=== PATIENT | male | born 1975 | race American Indian/Alaskan Native ===

== ENCOUNTER 2018-01-28 14:00 | Emergency (ER) | payer OTHER ==
[~2018-01-28] VITALS: Ht 170.2 cm; Wt 63.5 kg
[~2018-01-28 14:00] MED LIST: ABAT250V; Advil200 M1 PO; CENTRUM COMPLE1 EACH PO; CEPH500 PO; CHLO25 PO; Crutch1 EACH MISC; FOLI1 PO; MELA3 PO; MIRT30ST PO; NAPR500 PO; OMEP10ER; ONDA4ODT MM; OXCA300 PO; Omeprazole20 M1 PO; POTCHL20ER PO; PRAZ1 PO; PROM25 PO; Pepcid40 MG PO; Percocet 5-3251 EACH PO; QUET25 PO; THIA100 PO; TOPI25; Zofran Odt4 MG SL; Zofran4 MG PO
[2018-01-28 15:13] LABS: Anion Gap 9 mmol/L (6-16); Blood Urea Nitrogen 6 mg/dL (8-24); Bun/Creatinine Ratio 9.7 (12.0-20.0); CO2, Blood 26 mmol/L (21-32); Calcium, Blood 8.2 mg/dL (8.5-10.1); Chloride, Blood 91 mmol/L (98-108); Creatinine, Blood 0.62 mg/dL (0.60-1.20); Glomerular Filtration Rate >60 (60-); Glucose, Blood 88 mg/dL (70-99); Potassium, Blood 4.1 mmol/L (3.5-5.5); Sodium, Blood 126 mmol/L (136-145)
[2018-08-26] MEDS ORDERED: Phenergan25 M1 PO (17:26)
[2018-09-02] MEDS ORDERED: Norco 5-325 Ta1 EACH PO (15:56)
== END 2018-01-28 17:15 | disposition home or self-care (01) ==
LOC: ER 14:00
PROVIDERS: Emergency Medicine
DX: G40.909 Epilepsy, unspecified, not intractable, without status epilepticus (principal); F10.20 Alcohol dependence, uncomplicated; R11.2 Nausea with vomiting, unspecified; Z79.899 Other long term (current) drug therapy; I10 Essential (primary) hypertension; F17.210 Nicotine dependence, cigarettes, uncomplicated
CPT/HCPCS: 70450; 80048; 93005; 93010; 96361; 96374; 99284; J2405; J7030

== ENCOUNTER 2018-10-29 22:34 | Emergency (ER) | payer OTHER ==
[~2018-10-29] VITALS: Ht 162.6 cm; Wt 73.9 kg
[~2018-10-29 22:34] MED LIST changes: +Norco 5-325 Ta1 EACH PO; +Phenergan25 M1 PO
[2018-10-29] MEDS ORDERED: HYDPAM50 PO (23:27)
[2018-10-29] MEDS ORDERED: OLAN5 PO (23:28)
== END 2018-10-30 01:36 | disposition home or self-care (01) ==
LOC: ER 22:34
DX: S01.21XA Laceration without foreign body of nose, initial encounter (principal); S01.511A Laceration without foreign body of lip, initial encounter; F10.129 Alcohol abuse with intoxication, unspecified; Z23 Encounter for immunization; I10 Essential (primary) hypertension; F17.210 Nicotine dependence, cigarettes, uncomplicated; Z79.899 Other long term (current) drug therapy; W19.XXXA Unspecified fall, initial encounter
CPT/HCPCS: 12011; 70450; 70486; 72125; 90471; 90714; 99283-25

== ENCOUNTER 2018-11-10 11:32 | Emergency (ER) | payer OTHER ==
[~2018-11-10] VITALS: Ht 165.1 cm; Wt 72.6 kg
[~2018-11-10 11:32] MED LIST changes: +HYDPAM50 PO; +OLAN5 PO
== END 2018-11-10 12:47 | disposition home or self-care (01) ==
LOC: ER 11:32
DX: S01.511D Laceration without foreign body of lip, subsequent encounter (principal); S01.21XD Laceration without foreign body of nose, subsequent encounter; I10 Essential (primary) hypertension; K21.9 Gastro-esophageal reflux disease without esophagitis; R56.9 Unspecified convulsions; F17.210 Nicotine dependence, cigarettes, uncomplicated; Z79.899 Other long term (current) drug therapy; W19.XXXD Unspecified fall, subsequent encounter

== ENCOUNTER 2019-01-19 16:50 | Emergency (ER) | payer OTHER ==
[~2019-01-19] VITALS: Ht 165.1 cm; Wt 72.6 kg
[2019-01-19 17:59] LABS: BASOPHILS ABSOLUTE AUTO 0.04 K/mm3 (0.00-0.23); BASOPHILS PERCENT AUTO 1 % (0-2); EOSINOPHILS ABSOLUTE AUTO 0.33 K/mm3 (0.00-0.68); EOSINOPHILS PERCENT AUTO 4 % (0-6); Hematocrit 37.8 % (37.0-53.0); Hemoglobin 12.8 g/dL (13.5-17.5); IMMATURE GRAN ABSOLUTE AUTO 0.03 K/mm3 (0.00-0.10); IMMATURE GRAN PERCENT AUTO 0 % (0-1); LYMPHOCYTES PERCENT AUTO 11 % (21-46); MONOCYTES ABSOLUTE AUTO 0.68 K/mm3 (0.16-1.47); MONOCYTES PERCENT AUTO 9 % (4-13); Mean Corpuscular HGB 31.5 pg (26.0-34.0); Mean Corpuscular HGB Conc 33.9 g/dL (31.5-36.5); Mean Corpuscular Volume 93 fL (80-100); Mean Platelet Volume 7.9 fL (9.1-12.4); NEUTROPHILS ABSOLUTE AUTO 5.57 K/mm3 (1.96-9.15); NEUTROPHILS PERCENT AUTO 75 % (41-73); Platelet Count 224 K/mm3 (150-400); RDW Coefficient Variation 13.6 % (11.7-14.2); RDW Standard Deviation 46.1 fL (35.1-46.3); Red Blood Cell Count 4.06 M/mm3 (4.30-5.90); White Blood Cell Count 7.45 K/mm3 (4.00-11.30)
[2019-01-19 18:17] LABS: Alanine Aminotransfer (ALT/SGP 48 U/L (12-78); Albumin, Blood 3.8 g/dL (3.4-5.0); Albumin/Globulin Ratio 0.9 (0.8-1.8); Alk Phos 157 U/L (50-136); Anion Gap 8 mmol/L (6-16); Aspartate Aminotrans (AST/SGOT 54 U/L (12-37); Bilirubin, Total 0.5 mg/dL (0.1-1.0); Blood Urea Nitrogen 5 mg/dL (8-24); Bun/Creatinine Ratio 8.2 (12.0-20.0); CO2, Blood 28 mmol/L (21-32); Calcium, Blood 9.1 mg/dL (8.5-10.1); Chloride, Blood 94 mmol/L (98-108); Creatinine, Blood 0.61 mg/dL (0.60-1.20); Globulin, Blood 4.3 g/dL (2.2-4.0); Glomerular Filtration Rate >60 (60-); Glucose, Blood 78 mg/dL (70-99); Potassium, Blood 4.7 mmol/L (3.5-5.5); Sodium, Blood 130 mmol/L (136-145); Total Protein, Blood 8.1 g/dL (6.4-8.2)
[2019-01-19 18:23] LABS: International Normalized Ratio 0.93; Prothrombin Time Results 9.5 Sec (9.7-11.5)
[2019-01-19] MEDS ORDERED: PROM25 PO (23:47)
== END 2019-01-20 00:31 | disposition home or self-care (01) ==
LOC: ER 16:50
PROVIDERS: Physician Assistant
DX: L40.9 Psoriasis, unspecified (principal); F10.20 Alcohol dependence, uncomplicated; R11.0 Nausea; R60.0 Localized edema; Z79.899 Other long term (current) drug therapy; I10 Essential (primary) hypertension; F17.200 Nicotine dependence, unspecified, uncomplicated
CPT/HCPCS: 36415; 70450; 80053; 82140; 83690; 83880; 84484; 85025; 85610; 85730; 96374; 96375; 99284-25; J1940; J2550

== ENCOUNTER 2020-06-06 17:22 | Emergency (ER) | payer OTHER ==
[~2020-06-06] VITALS: Ht 165.1 cm; Wt 59.0 kg
[~2020-06-06 17:22] MED LIST changes: +B-1100 M1 PO; -CENTRUM COMPLE1 EACH PO; +GABA300 PO; +MULTI VITAMIN1 EACH PO; +OMEP20ER PO; -Omeprazole20 M1 PO; +Oxcarbazepine600 MG PO; +Vistaril50 MG PO; +ZYPREXA15 MG PO
[2020-06-06 18:10] LABS: BASOPHILS ABSOLUTE AUTO 0.03 K/mm3 (0.00-0.23); BASOPHILS PERCENT AUTO 0 % (0-2); EOSINOPHILS ABSOLUTE AUTO 0.09 K/mm3 (0.00-0.68); EOSINOPHILS PERCENT AUTO 1 % (0-6); Hematocrit 34.2 % (37.0-53.0); IMMATURE GRAN ABSOLUTE AUTO 0.01 K/mm3 (0.00-0.10); IMMATURE GRAN PERCENT AUTO 0 % (0-1); LYMPHOCYTES ABSOLUTE AUTO 0.87 K/mm3 (0.84-5.20); LYMPHOCYTES PERCENT AUTO 12 % (21-46); MONOCYTES ABSOLUTE AUTO 0.81 K/mm3 (0.16-1.47); MONOCYTES PERCENT AUTO 11 % (4-13); Mean Corpuscular HGB 30.9 pg (26.0-34.0); Mean Corpuscular HGB Conc 35.1 g/dL (31.5-36.5); Mean Corpuscular Volume 88 fL (80-100); NEUTROPHILS ABSOLUTE AUTO 5.49 K/mm3 (1.96-9.15); NEUTROPHILS PERCENT AUTO 75 % (41-73); Platelet Count 247 K/mm3 (150-400); RDW Coefficient Variation 14.2 % (11.7-14.2); RDW Standard Deviation 45.5 fL (35.1-46.3); Red Blood Cell Count 3.88 M/mm3 (4.30-5.90)
[2020-06-06 18:31] LABS: Alanine Aminotransfer (ALT/SGP 21 U/L (12-78); Albumin, Blood 2.7 g/dL (3.4-5.0); Albumin/Globulin Ratio 0.5 (0.8-1.8); Alk Phos 191 U/L (50-136); Anion Gap 11 mmol/L (6-16); Aspartate Aminotrans (AST/SGOT 30 U/L (12-37); Blood Urea Nitrogen 1 mg/dL (8-24); Bun/Creatinine Ratio 1.8 (12.0-20.0); CO2, Blood 27 mmol/L (21-32); Calcium, Blood 8.1 mg/dL (8.5-10.1); Chloride, Blood 83 mmol/L (98-108); Creatinine, Blood 0.57 mg/dL (0.60-1.20); Ethanol (Alcohol), Blood, Med <3 mg/dL; Glomerular Filtration Rate >60 (60-); Glucose, Blood 107 mg/dL (70-99); Potassium, Blood 3.3 mmol/L (3.5-5.5); Salicylate <1.7 mg/dL (2.8-20.0); Sodium, Blood 121 mmol/L (136-145); Total Protein, Blood 7.7 g/dL (6.4-8.2)
[2020-06-06 18:33] LABS: Magnesium, Blood 1.9 mg/dL (1.6-2.4); Phosphorus, Blood 3.2 mg/dL (2.5-4.9)
[2020-06-06 18:33] LABS: Source, Urine Clean Catch
[2020-06-06 18:34] LABS: Acetaminophen, Random <2.0 ug/mL (10.0-30.0)
[2020-06-06 18:36] LABS: Appearance, Urine Clear (Clear); Bilirubin, Urine Neg (Neg); Blood, Urine Neg (Neg); Color, Urine Yellow (P-Yellow); Glucose Qualitative, Urine Neg (Neg); Ketones, Urine 3+ (Neg); Leukocyte Esterase, Urine Neg (Neg); Nitrite, Urine Neg (Neg); Protein, Urine Neg (Neg); Specific Gravity, Urine 1.015 (1.003-1.022); Urobilinogen, Urine 3+ (Normal)
[2020-06-06 18:47] LABS: U Amphetamine Screen Not Detected; U Barbituate Screen Not Detected; U Benzodiazapine Screen DETECTED; U Buprenorphine Screen Not Detected; U Cannabinoids Screen Not Detected; U Cocaine Screen Not Detected; U Methadone Screen Not Detected; U Methamphetamine Screen Not Detected; U Opiates Screen Not Detected; U Oxycodone Screen Not Detected; U Phencyclidine Screen Not Detected; U Propoxyphene Screen Not Detected
[2020-06-06] MEDS ORDERED: CHLO25 PO (20:58)
[2020-06-06] MEDS ORDERED: OLAN7.5 PO (20:59)
== END 2020-06-06 21:35 | disposition home or self-care (01) ==
LOC: ER 17:22
PROVIDERS: Physician Assistant
DX: F10.239 Alcohol dependence with withdrawal, unspecified (principal); Y90.0 Blood alcohol level of less than 20 mg/100 ml; Z91.14 Patient's other noncompliance with medication regimen; Z79.899 Other long term (current) drug therapy; I10 Essential (primary) hypertension; F41.9 Anxiety disorder, unspecified; F32.9 Major depressive disorder, single episode, unspecified; F43.10 Post-traumatic stress disorder, unspecified; Z87.891 Personal history of nicotine dependence
CPT/HCPCS: 36415; 80053; 81003; 83735; 84100; 85025; 93005; 93010; 96365; 96366; 96375; 99285-25; G0480; J2060; J3411; J3475; J7042

== ENCOUNTER 2021-08-05 21:36 | Emergency (ER) | payer OTHER ==
[~2021-08-05] VITALS: Ht 172.7 cm; Wt 63.5 kg
[~2021-08-05 21:36] MED LIST changes: +OLAN7.5 PO
[2021-08-05 21:55] LABS: Calcium, Ionized (POC) 0.93 mmol/L (1.10-1.46); Chloride (POC) 90 mmol/L (98-108); Creatinine (POC) 0.8 mg/dL (0.8-1.3); Glucose (ISTAT POC) 179 mg/dL (70-99); Hemoglobin (POC) 7.5 g/dL (13.5-17.5); Potassium (POC) 4.2 mmol/L (3.5-5.5); Sodium (POC) 125 mmol/L (135-148); Total CO2 (POC) 23 mmol/L (21-32)
[2021-08-05 21:58] LABS: BASOPHILS ABSOLUTE AUTO 0.02 K/mm3 (0.00-0.23); BASOPHILS PERCENT AUTO 0 % (0-2); EOSINOPHILS PERCENT AUTO 0 % (0-6); Hemoglobin 6.5 g/dL (13.5-17.5); IMMATURE GRAN ABSOLUTE AUTO 0.15 K/mm3 (0.00-0.10); IMMATURE GRAN PERCENT AUTO 1 % (0-1); LYMPHOCYTES ABSOLUTE AUTO 1.11 K/mm3 (0.84-5.20); LYMPHOCYTES PERCENT AUTO 6 % (21-46); MONOCYTES ABSOLUTE AUTO 2.19 K/mm3 (0.16-1.47); MONOCYTES PERCENT AUTO 12 % (4-13); Mean Corpuscular HGB 26.7 pg (26.0-34.0); Mean Corpuscular HGB Conc 34.2 g/dL (31.5-36.5); Mean Corpuscular Volume 78 fL (80-100); Mean Platelet Volume 8.5 fL (9.1-12.4); NEUTROPHILS ABSOLUTE AUTO 14.73 K/mm3 (1.96-9.15); NEUTROPHILS PERCENT AUTO 81 % (41-73); Platelet Count 509 K/mm3 (150-400); RDW Coefficient Variation 22.5 % (11.7-14.2); RDW Standard Deviation 62.4 fL (35.1-46.3); Red Blood Cell Count 2.43 M/mm3 (4.30-5.90)
[2021-08-05 22:13] LABS: Alanine Aminotransfer (ALT/SGP 17 U/L (12-78); Albumin, Blood 1.9 g/dL (3.4-5.0); Albumin/Globulin Ratio 0.5 (0.8-1.8); Alk Phos 173 U/L (50-136); Anion Gap 11 mmol/L (6-16); Aspartate Aminotrans (AST/SGOT 28 U/L (12-37); Bilirubin, Total 1.1 mg/dL (0.1-1.0); Blood Urea Nitrogen 8 mg/dL (8-24); Bun/Creatinine Ratio 10.3 (12.0-20.0); CO2, Blood 23 mmol/L (21-32); Calcium, Blood 7.6 mg/dL (8.5-10.1); Chloride, Blood 93 mmol/L (98-108); Creatinine, Blood 0.78 mg/dL (0.60-1.20); Glomerular Filtration Rate >60 (60-); Glucose, Blood 173 mg/dL (70-99); Sodium, Blood 127 mmol/L (136-145); Total Protein, Blood 5.9 g/dL (6.4-8.2); Troponin I <0.015 ng/mL (0.000-0.040)
[2021-08-05 23:19] LABS: SARS-Cov-2 (COVID-19) PCR, MMC NEGATIVE (NEGATIVE)
[2021-08-05 23:36] LABS: International Normalized Ratio 1.95; Prothrombin Time Results 20.3 Sec (9.7-11.5)
== END 2021-08-06 00:30 | disposition short-term general hospital (02) ==
LOC: ER 21:36
PROVIDERS: Emergency Medicine
DX: R56.9 Unspecified convulsions (principal); K92.1 Melena; F10.239 Alcohol dependence with withdrawal, unspecified; Z20.822 Contact with and (suspected) exposure to COVID-19; I10 Essential (primary) hypertension; G40.909 Epilepsy, unspecified, not intractable, without status epilepticus; F41.9 Anxiety disorder, unspecified; F32.9 Major depressive disorder, single episode, unspecified; Z79.899 Other long term (current) drug therapy
CPT/HCPCS: 31500; 36430; 51702; 70450; 71045; 80047; 80053; 82140; 84484; 85014; 85025; 85610; 86850; 86900; 86901; 86923; 93005; 93010; 94002; 96365-59; 96366-59; 96368; 96375-59; 96376-59; 99291-25; 99292; C9113; J0330; J0696; J1953; J2060; J2250; J2354; J2704; J3010; J7030; J7050; P9016; U0004